=== PATIENT | female | born 1955 | race Caucasian/White ===

== ENCOUNTER 2017-02-02 17:50 | Emergency (ER) | payer BC, OTHER ==
[~2017-02-02] VITALS: Ht 162.6 cm; Wt 52.4 kg
[2017-02-02] MEDS ORDERED: SODIUM CHLORIDE 0.9% 1,000ML IVBOLUS ONE (18:30)
[2017-02-02] MEDS ORDERED: SODIUM CHLORIDE FLUSH 10ML SYR IVF ONE (18:30)
[2017-02-02 18:43] VITALS: BP 147/85
[2017-02-02 18:46] LABS: ASPARTATE AMINO TRANSFERASE 18 U/L (15-37); BLOOD UREA NITROGEN 24 mg/dL (7-18)
[2017-02-02] MEDS ORDERED: THYR120T PO (18:47)
[2017-02-02 18:51] LABS: HEMOGLOBIN 13.1 g/dL (11.7-16.4); WHITE BLOOD COUNT 4.4 x10^3/uL (3.4-10)
[2017-02-02] MEDS ORDERED: KETOROLAC 30 MG/1 ML ONE (18:56)
[2017-02-02] MEDS ORDERED: KETOROLAC 30 MG/1 ML IVPush ONE (19:00)
[2017-02-02 19:55] LABS: PATH.CAST-FLAG NOT PRESENT; SPERM-FLAG NOT PRESENT; SRC-FLAG NOT PRESENT; XTAL-FLAG NOT PRESENT; YLC-FLAG NOT PRESENT
== END 2017-02-02 21:21 | disposition home or self-care (01) ==
LOC: ED 21:15
DX: N20.2 Calculus of kidney with calculus of ureter (principal); E03.9 Hypothyroidism, unspecified; Z88.1 Allergy status to other antibiotic agents
CPT/HCPCS: 36415; 76770; 80053; 81001; 83690; 85025; 96360; 99285; J7030

== ENCOUNTER 2017-03-19 21:47 | Emergency (ER) | payer BC ==
[~2017-03-19] VITALS: Ht 162.6 cm; Wt 51.3 kg
[~2017-03-19 21:47] MED LIST: THYR120T PO
[2017-03-19] MEDS ORDERED: SODIUM CHLORIDE 0.9% 1,000ML IVBOLUS ONE (23:30)
[2017-03-19] MEDS ORDERED: ONDANSETRON 2MG/ML, 2ML IVPush ONE (23:30)
[2017-03-19] MEDS ORDERED: KETOROLAC 30 MG/1 ML IVPush ONE (23:30)
[2017-03-19] MEDS ORDERED: MORPHINE SULFATE 4 MG/ML, 1ML IVPush PRN (23:30)
[2017-03-19] MEDS ORDERED: SODIUM CHLORIDE FLUSH 10ML SYR IVF ONE (23:30)
[2017-03-19] MEDS ORDERED: PHENAZOPYRIDINE 200 MG TABLET PO ONE (23:30)
[2017-03-19] MEDS ORDERED: PHENAZOPYRIDINE 200 MG TABLET ONE (23:47)
[2017-03-19 23:48] LABS: HEMATOCRIT 44.4 % (34.6-47.8); HEMOGLOBIN 14.9 g/dL (11.7-16.4); WHITE BLOOD COUNT 13.1 x10^3/uL (3.4-10)
[2017-03-19] MEDS ORDERED: MORPHINE SULFATE 4 MG/ML, 1ML ONE (23:48)
[2017-03-19] MEDS ORDERED: KETOROLAC 30 MG/1 ML ONE (23:48)
[2017-03-19] MEDS ORDERED: ONDANSETRON 2MG/ML, 2ML ONE (23:48)
[2017-03-20 00:01] LABS: ASPARTATE AMINO TRANSFERASE 19 U/L (15-37); BLOOD UREA NITROGEN 24 mg/dL (7-18)
[2017-03-20] MEDS ORDERED: MORPHINE SULFATE 4 MG/ML, 1ML IVPush PRN (02:00)
[2017-03-20 02:35] VITALS: BP 122/68
== END 2017-03-20 02:37 | disposition home or self-care (01) ==
LOC: ED 23:07
DX: N13.2 Hydronephrosis with renal and ureteral calculous obstruction (principal); E03.9 Hypothyroidism, unspecified; Z87.442 Personal history of urinary calculi; Z90.710 Acquired absence of both cervix and uterus; Z88.1 Allergy status to other antibiotic agents
CPT/HCPCS: 36415; 76770; 80053; 81003; 83690; 85025; 96361; 96374; 96375; 99285; J1885; J2405; J7030

== ENCOUNTER 2017-08-10 09:10 | Emergency (ER) | payer BC ==
[~2017-08-10] VITALS: Ht 162.6 cm; Wt 52.8 kg
[2017-08-10] MEDS ORDERED: TEST2.5G5 TP (10:42)
[2017-08-10] MEDS ORDERED: TRAZ100T15 PO (10:43)
[2017-08-10] MEDS ORDERED: BI-EST TP (10:43)
[2017-08-10 11:04] LABS: BASOPHILS # (AUTO) 0.04 x10^3/uL (0-0.1); BASOPHILS % (AUTO) 1 % (0-1); EOSINOPHILS # (AUTO) 0.09 x10^3/uL (0-0.4); EOSINOPHILS % (AUTO) 2 % (1-7); LYMPHOCYTES # (AUTO) 1.95 x10^3/uL (1-3.4); LYMPHOCYTES % (AUTO) 37 % (22-44); MD NO; MEAN CORPUSCULAR HEMOGLOBIN 29.8 pg (27.0-34.8); MEAN CORPUSCULAR HGB CONC 33.8 g/dL (32.4-35.8); MEAN CORPUSCULAR VOLUME 88.1 fL (80-100); MEAN PLATELET VOLUME 8.1 fL (7.4-10.4); MONOCYTES # (AUTO) 0.37 x10^3/uL (0.2-0.8); MONOCYTES % (AUTO) 7 % (2-9); NEUTROPHILS # (AUTO) 2.81 x10^3/uL (1.8-6.8); NEUTROPHILS % (AUTO) 53 % (42-75); PLATELET COUNT 294 x10^3/uL (130-400); RED BLOOD COUNT 4.63 x10^6/uL (3.82-5.3); RED CELL DISTRIBUTION WIDTH 13.2 % (9.6-15.2)
[2017-08-10 11:18] LABS: ALBUMIN 4.3 g/dL (3.4-5.0); ANION GAP 5 mmol/L (5-15); CALCIUM 9.1 mg/dL (8.5-10.1); CHLORIDE 106 mmol/L (98-107); CREATININE 0.93 mg/dL (0.55-1.02)
[2017-08-10 11:21] LABS: TROPONIN I < 0.015 ng/mL (0.000-0.045)
[2017-08-10] MEDS ORDERED: ASPI-515 PO (11:57)
[2017-08-10 13:04] LABS: TROPONIN I < 0.015 ng/mL (0.000-0.045)
[2017-08-10 13:24] VITALS: BP 127/77
== END 2017-08-10 13:27 | disposition home or self-care (01) ==
LOC: ED 13:18
DX: R07.2 Precordial pain (principal); E03.9 Hypothyroidism, unspecified; Z90.710 Acquired absence of both cervix and uterus
CPT/HCPCS: 36415; 71045; 80048; 82040; 84484; 85025; 85379; 93005; 99285

== ENCOUNTER 2019-08-29 14:24 | Emergency (ER) | payer BC, MEDICARE, OTHER ==
[~2019-08-29] VITALS: Ht 162.6 cm; Wt 53.0 kg
[~2019-08-29 14:24] MED LIST changes: +ASPI-515 PO; +BI-EST TP; +TEST2.5G9 TP; +TRAZ-175 PO
[2019-08-29 15:02] VITALS: BP 118/61
== END 2019-08-29 17:07 | disposition home or self-care (01) ==
LOC: ED 16:17
DX: S16.1XXA Strain of muscle, fascia and tendon at neck level, initial encounter (principal); V49.9XXA Car occupant (driver) (passenger) injured in unspecified traffic accident, initial encounter; W22.10XA Striking against or struck by unspecified automobile airbag, initial encounter; Y93.89 Activity, other specified; Y92.481 Parking lot as the place of occurrence of the external cause; Y99.8 Other external cause status
CPT/HCPCS: 72125; 99284